=== PATIENT | female | born 1985 | race Two or more races ===

== ENCOUNTER 2022-06-14 12:34 | Inpatient (IN) | payer MEDICAID, OTHER ==
[~2022-06-14] VITALS: Ht 172.7 cm; Wt 91.9 kg
[2022-06-14] MEDS ORDERED: MORPHINE SULFATE 4 MG/ML SYR/VIAL IV ONE (16:00)
[2022-06-14] MEDS ORDERED: SODIUM CHLORIDE 0.9% 500 ML IVB ONE ×2 (16:00)
[2022-06-14] MEDS ORDERED: SODIUM CHLORIDE 0.9% 1,000 ML IV ONE ×2 (16:00)
[2022-06-14] MEDS ORDERED: METOCLOPRAMIDE HCL 5MG/ml INJ 2ml VIAL IV ONE (16:00)
[2022-06-14 16:22] LABS: Basophils # (auto) 0.1 10 ^3/uL (0-0.2); Basophils % (auto) 0.4 % (0.0-2.0); Eosinophils # (auto) 0 10 ^3/uL (0-0.8); Monocytes # (auto) 0.3 10 ^3/uL (0-1.3)
[2022-06-14 16:24] LABS: Hematocrit 44.7 % (36.0-46.0); Hemoglobin 14.1 g/dL (12.2-16.2); Lymphocytes % (auto) 5.3 % (10.0-50.0); Mean Corpuscular Hemoglobin 25.2 pg (28.0-32.0); Mean Corpuscular Hgb Conc. 31.5 g/dL (32.0-36.0); Monocytes % (auto) 1.5 % (0.0-12.0); Neutrophils # (auto) 17.8 10 ^3/uL (1.6-8.6); Neutrophils % (auto) 92.8 % (37.0-80.0); Red Blood Cells 5.59 10^6/uL (4.0-5.20); Red Cell Distribution Width 14.9 % (11.8-14.3); White Blood Cell 19.2 10^3/uL (4.4-10.8)
[2022-06-14 16:33] LABS: Albumin 3.9 g/dL (3.4-5.0); BUN/Creatinine Ratio 10.8; Calcium 8.4 mg/dL (8.5-10.1); Magnesium 1.9 mg/dL (1.6-2.6); Potassium 3.8 mmol/L (3.5-5.1)
[2022-06-14 16:36] LABS: Bilirubin, Total 0.3 mg/dL (0.2-1.0); Total Protein 8.1 g/dL (6.4-8.2)
[2022-06-14] MEDS ORDERED: IOHEXOL 300 MG/ML 100ML BOTTLE IJ ONE (16:58)
[2022-06-14 18:28] LABS: Urine Bacteria NONE SEEN /hpf (None Seen); Urine Blood Negative /uL (Negative); Urine Mucus FEW (None Seen); Urine Specific Gravity 1.024 (1.001-1.035); Urine WBC 5 /hpf (0 - 5)
[2022-06-14] MEDS ORDERED: MORPHINE SULFATE INJ 2 MG/ml SYRG IV ONE (18:45)
[2022-06-14] MEDS ORDERED: cefTRIAXone 1GM/50ML D5W 50 ML IV ONE (18:45)
[2022-06-14] MEDS ORDERED: ONDANSETRON HCL 4 MG/2 ML VIAL IM ONE (18:45)
[2022-06-14] MEDS ORDERED: ONDANSETRON HCL 4 MG/2 ML VIAL IV ONE (19:15)
[2022-06-14 19:42] LABS: INR 0.99 (0.9-1.15)
[2022-06-14] MEDS ORDERED: DEXTROSE (50%) 50ML SYRG IV PRN (22:45)
[2022-06-14] MEDS ORDERED: NITROGLYCERIN 0.4 MG SL TAB SL PRN (22:45)
[2022-06-14] MEDS ORDERED: HYDROcodone-ACET 5/325MG TAB PO PRN (22:45)
[2022-06-14] MEDS ORDERED: SODIUM CHLORIDE 0.9% 1,000 ML IV SCH (22:45)
[2022-06-14] MEDS ORDERED: MORPHINE SULFATE INJ 2 MG/ml SYRG IV PRN (22:45)
[2022-06-14] MEDS: ONDANSETRON HCL 4 MG/2 ML VIAL IV PRN (23:20)
[2022-06-15] MEDS: ONDANSETRON HCL 4 MG/2 ML VIAL IV PRN ×4 (04:55→21:43)
[2022-06-15 05:00] VITALS: BP 126/85
[2022-06-15] MEDS: metroNIDAZOLE 500MG/100ML 100 ML IV SCH ×2 (06:09→19:22)
[2022-06-15] MEDS: InsuLIN REG 1unit/0.01ml Soln (100units/ml) SC SCH ×4 (06:12→21:44)
[2022-06-15] MEDS: ACCU-CHEK COMFORT CURVE STRIP VI SCH ×4 (06:12→21:44)
[2022-06-15 07:08] LABS: Basophils # (auto) 0 10 ^3/uL (0-0.2); Basophils % (auto) 0.2 % (0.0-2.0); Eosinophils # (auto) 0 10 ^3/uL (0-0.8); Hematocrit 37.7 % (36.0-46.0); Hemoglobin 12.5 g/dL (12.2-16.2); Lymphocytes # (auto) 1.9 10 ^3/uL (0.4-5.4); Lymphocytes % (auto) 14.1 % (10.0-50.0); Mean Corpuscular Hemoglobin 26.1 pg (28.0-32.0); Mean Corpuscular Hgb Conc. 33.3 g/dL (32.0-36.0); Mean Corpuscular Volume 78.6 fL (80.0-100.0); Monocytes # (auto) 0.7 10 ^3/uL (0-1.3); Monocytes % (auto) 4.9 % (0.0-12.0); Neutrophils # (auto) 10.9 10 ^3/uL (1.6-8.6); Neutrophils % (auto) 80.8 % (37.0-80.0); Red Blood Cells 4.79 10^6/uL (4.0-5.20); Red Cell Distribution Width 14.6 % (11.8-14.3); White Blood Cell 13.5 10^3/uL (4.4-10.8)
[2022-06-15 07:27] LABS: Albumin 3.3 g/dL (3.4-5.0); Calcium 7.9 mg/dL (8.5-10.1)
[2022-06-15 07:31] LABS: BUN/Creatinine Ratio 11.9; Bilirubin, Total 0.6 mg/dL (0.2-1.0)
[2022-06-15 07:40] LABS: Potassium 2.9 mmol/L (3.5-5.1)
[2022-06-15 08:00] VITALS: BP 141/95
[2022-06-15] MEDS: FAMOTIDINE (10MG/ML) 2ML VL IV SCH ×2 (08:44→21:43)
[2022-06-15] MEDS: POTASSIUM CHL 20MEQ/100ML 100 ML IV SCH ×3 (08:44→16:08)
[2022-06-15] MEDS: MORPHINE SULFATE INJ 2 MG/ml SYRG IV PRN ×3 (08:50→23:16)
[2022-06-15 09:00] VITALS: BP 141/95
[2022-06-15] MEDS ORDERED: ENOXAPARIN SOD 40 MG/0.4 ML SYRINGE SC SCH (10:00)
[2022-06-15] MEDS ORDERED: GASTROGRAFIN 120 ML SOL ONE (12:15)
[2022-06-15 13:00] VITALS: BP_SYST 120; BP_SYST 147; BP_DIAS 49; BP_DIAS 94
[2022-06-15 17:00] VITALS: BP 129/84
[2022-06-15] MEDS ORDERED: POTASSIUM CHLORIDE 60 MEQ, LIDOCAINE 1% (LOCAL ANESTH.) 6 ML in SODIUM CHL 0.9% 500 ML IV ONE (18:45)
[2022-06-15] MEDS ORDERED: D5W/SOD CHL 0.45%/KCL 40MEQ 1,000 ML IV SCH (18:45)
[2022-06-15] MEDS ORDERED: cefTRIAXone 1GM/50ML D5W 50 ML IV SCH ×2 (19:00→21:00)
[2022-06-15 22:00] VITALS: BP 152/99
[2022-06-15 22:20] LABS: Magnesium 2.2 mg/dL (1.6-2.6); Potassium 3.8 mmol/L (3.5-5.1)
[2022-06-16] MEDS: metroNIDAZOLE 500MG/100ML 100 ML IV SCH ×3 (03:38→21:44)
[2022-06-16] MEDS: ONDANSETRON HCL 4 MG/2 ML VIAL IV PRN (04:37)
[2022-06-16 05:00] VITALS: BP 148/99
[2022-06-16 06:02] LABS: Calcium 8.2 mg/dL (8.5-10.1); Magnesium 2.3 mg/dL (1.6-2.6); Potassium 3.3 mmol/L (3.5-5.1)
[2022-06-16] MEDS: InsuLIN REG 1unit/0.01ml Soln (100units/ml) SC SCH ×4 (06:04→21:51)
[2022-06-16] MEDS: ACCU-CHEK COMFORT CURVE STRIP VI SCH ×4 (06:04→21:51)
[2022-06-16] MEDS: MORPHINE SULFATE INJ 2 MG/ml SYRG IV PRN (08:21)
[2022-06-16 09:00] VITALS: BP 143/95
[2022-06-16] MEDS: FAMOTIDINE (10MG/ML) 2ML VL IV SCH (10:10)
[2022-06-16] MEDS ORDERED: POTASSIUM CHLORIDE 40 MEQ, LIDOCAINE 1% (LOCAL ANESTH.) 4 ML in SODIUM CHL 0.9% 250 ML IV STA (10:54)
[2022-06-16 13:00] VITALS: BP 146/94
[2022-06-16] MEDS ORDERED: ceFAZolin 1GM/50ML 100 ML IV ONE (13:58)
[2022-06-16] MEDS ORDERED: HYDROmorphone HCL 2 MG/ML VL/or syr ONE (14:11)
[2022-06-16] MEDS ORDERED: ROCURONIUM 10MG/ML 10ML VIAL IV ONE (14:11)
[2022-06-16] MEDS ORDERED: fentaNYL CITRATE 100 MCG/2 ML VL ONE (14:11)
[2022-06-16] MEDS ORDERED: PROPOFOL 10 MG/ML 20 ML IV ONE (14:12)
[2022-06-16] MEDS ORDERED: MIDAZOLAM HCL 2MG/2ML 2ml VIAL (1mg/ml) ONE (14:12)
[2022-06-16] MEDS ORDERED: GLYCOPYRROLATE 0.2 MG/ML 1ML VIAL ONE (14:12)
[2022-06-16] MEDS ORDERED: ONDANSETRON HCL 4 MG/2 ML VIAL ONE (14:12)
[2022-06-16] MEDS ORDERED: DexAMETHasone SOD PHOS 10MG/1ML VIAL INJ ONE (14:12)
[2022-06-16] MEDS ORDERED: FAMOTIDINE (10MG/ML) 2ML VL IV ONE (15:07)
[2022-06-16] MEDS ORDERED: ONDANSETRON HCL 4 MG/2 ML VIAL IV PRN (15:45)
[2022-06-16] MEDS ORDERED: ACCU-CHEK COMFORT CURVE STRIP VI ONE (15:45)
[2022-06-16] MEDS ORDERED: HYDROmorphone HCL 2 MG/ML VL/or syr IV PRN (15:45)
[2022-06-16] MEDS ORDERED: SUGAMMADEX 200mg/2ml Vial (100MG/ML) IV ONE (15:47)
[2022-06-16] MEDS ORDERED: MEPERIDINE HCL (50 MG/ML) 1 ML VIAL ONE (16:03)
[2022-06-16] MEDS ORDERED: LACTATED RINGER'S 1,000 ML IV ONE (16:15)
[2022-06-16] MEDS: D5W/SOD CHL 0.45%/KCL 20MEQ 1,000 ML IV SCH (16:15)
[2022-06-16] MEDS ORDERED: ALBUTEROL SULF 2.5 MG/0.5ML(0.5%) NEB SOLN NEB ONE (16:30)
[2022-06-16] MEDS ORDERED: metroNIDAZOLE 500MG/100ML 100 ML IV SCH (20:00)
[2022-06-16 22:00] VITALS: BP 131/93
[2022-06-16] MEDS: HYDROmorphone HCL 2 MG/ML VL/or syr IV PRN (22:02)
[2022-06-16] MEDS ORDERED: cefTRIAXone 1GM/50ML D5W 50 ML IV ONE (23:00)
[2022-06-16] MEDS ORDERED: cefTRIAXone 1GM/50ML D5W 50 ML IV SCH (23:00)
[2022-06-17] MEDS: D5W/SOD CHL 0.45%/KCL 20MEQ 1,000 ML IV SCH ×3 (00:43→18:38)
[2022-06-17] MEDS: HYDROmorphone HCL 2 MG/ML VL/or syr IV PRN ×4 (01:25→23:10)
[2022-06-17 05:00] VITALS: BP 139/90
[2022-06-17 05:17] LABS: Eosinophils # (auto) 0 10 ^3/uL (0-0.8); Eosinophils % (auto) 0.1 % (0.0-7.0); Nucleated Red Blood Cells % 0.1 %; Red Blood Cells 4.72 10^6/uL (4.0-5.20); Red Cell Distribution Width 14.7 % (11.8-14.3); White Blood Cell 14.3 10^3/uL (4.4-10.8)
[2022-06-17 05:19] LABS: Basophils # (auto) 0 10 ^3/uL (0-0.2); Basophils % (auto) 0.3 % (0.0-2.0); Hemoglobin 12.2 g/dL (12.2-16.2); Lymphocytes # (auto) 3.1 10 ^3/uL (0.4-5.4); Lymphocytes % (auto) 21.5 % (10.0-50.0); Mean Corpuscular Hemoglobin 25.8 pg (28.0-32.0); Mean Corpuscular Hgb Conc. 32.9 g/dL (32.0-36.0); Mean Corpuscular Volume 78.4 fL (80.0-100.0); Monocytes # (auto) 0.7 10 ^3/uL (0-1.3); Monocytes % (auto) 4.9 % (0.0-12.0); Neutrophils # (auto) 10.5 10 ^3/uL (1.6-8.6); Neutrophils % (auto) 73.2 % (37.0-80.0)
[2022-06-17 05:32] LABS: BUN/Creatinine Ratio 15.2; Calcium 7.5 mg/dL (8.5-10.1); Potassium 3.4 mmol/L (3.5-5.1)
[2022-06-17] MEDS: metroNIDAZOLE 500MG/100ML 100 ML IV SCH ×3 (05:36→22:03)
[2022-06-17] MEDS: ACCU-CHEK COMFORT CURVE STRIP VI SCH ×2 (06:08→12:53)
[2022-06-17] MEDS: InsuLIN REG 1unit/0.01ml Soln (100units/ml) SC SCH ×2 (06:09→11:30)
[2022-06-17 09:00] VITALS: BP 134/86
[2022-06-17] MEDS: PANTOPRAZOLE 40 MG/10 ML VIAL INJ IV SCH (11:34)
[2022-06-17] MEDS: ONDANSETRON HCL 4 MG/2 ML VIAL IV PRN (11:34)
[2022-06-17 13:00] VITALS: BP_SYST 120; BP_SYST 126; BP_DIAS 59; BP_DIAS 86
[2022-06-17 16:45] VITALS: BP 138/88
[2022-06-17] MEDS: cefTRIAXone 1GM/50ML D5W 50 ML IV SCH (20:52)
[2022-06-17 22:00] VITALS: BP 138/88
[2022-06-18] MEDS: D5W/SOD CHL 0.45%/KCL 20MEQ 1,000 ML IV SCH ×3 (03:21→15:22)
[2022-06-18 04:58] VITALS: BP 130/88
[2022-06-18] MEDS: metroNIDAZOLE 500MG/100ML 100 ML IV SCH ×3 (06:07→22:26)
[2022-06-18] MEDS: ONDANSETRON HCL 4 MG/2 ML VIAL IV PRN ×2 (06:17→15:22)
[2022-06-18] MEDS: HYDROmorphone HCL 2 MG/ML VL/or syr IV PRN ×2 (06:18→15:25)
[2022-06-18 09:17] VITALS: BP 130/83
[2022-06-18] MEDS: PANTOPRAZOLE 40 MG/10 ML VIAL INJ IV SCH (09:46)
[2022-06-18] MEDS: METOCLOPRAMIDE HCL 5MG/ml INJ 2ml VIAL IV SCH ×3 (10:22→17:48)
[2022-06-18 13:00] VITALS: BP 144/93
[2022-06-18 17:00] VITALS: BP 127/80
[2022-06-18] MEDS: TEMAZEPAM 15 MG CAP PO PRN (21:17)
[2022-06-18 22:00] VITALS: BP 134/90
[2022-06-18] MEDS: cefTRIAXone 1GM/50ML D5W 50 ML IV SCH (22:26)
[2022-06-19] MEDS: ONDANSETRON HCL 4 MG/2 ML VIAL IV PRN ×4 (00:43→16:44)
[2022-06-19] MEDS: D5W/SOD CHL 0.45%/KCL 20MEQ 1,000 ML IV SCH (02:35)
[2022-06-19] MEDS: METOCLOPRAMIDE HCL 5MG/ml INJ 2ml VIAL IV SCH ×4 (04:08→18:12)
[2022-06-19 05:00] VITALS: BP 125/89
[2022-06-19] MEDS: HYDROmorphone HCL 2 MG/ML VL/or syr IV PRN ×2 (05:31→18:44)
[2022-06-19] MEDS: metroNIDAZOLE 500MG/100ML 100 ML IV SCH ×3 (07:28→22:11)
[2022-06-19 08:50] VITALS: BP 127/92
[2022-06-19] MEDS: PANTOPRAZOLE 40 MG/10 ML VIAL INJ IV SCH (09:37)
[2022-06-19 12:50] VITALS: BP 140/97
[2022-06-19 16:45] VITALS: BP 125/85
[2022-06-19] MEDS: cefTRIAXone 1GM/50ML D5W 50 ML IV SCH (20:45)
[2022-06-19 22:00] VITALS: BP 133/88
[2022-06-19] MEDS: TEMAZEPAM 15 MG CAP PO PRN (22:11)
[2022-06-20] MEDS: ONDANSETRON HCL 4 MG/2 ML VIAL IV PRN ×2 (03:38→10:38)
[2022-06-20] MEDS: HYDROmorphone HCL 2 MG/ML VL/or syr IV PRN (03:40)
[2022-06-20 05:00] VITALS: BP 125/82
[2022-06-20] MEDS: metroNIDAZOLE 500MG/100ML 100 ML IV SCH (05:50)
[2022-06-20] MEDS: METOCLOPRAMIDE HCL 5MG/ml INJ 2ml VIAL IV SCH ×5 (05:50→18:25)
[2022-06-20 09:00] VITALS: BP 131/86
[2022-06-20] MEDS: PANTOPRAZOLE 40 MG/10 ML VIAL INJ IV SCH (09:42)
[2022-06-20] MEDS: ACETAMINOPHEN 325 MG TAB PO PRN ×2 (10:43→18:26)
[2022-06-20 13:00] VITALS: BP 132/84
[2022-06-20 13:52] LABS: Basophils # (auto) 0 10 ^3/uL (0-0.2); Basophils % (auto) 0.2 % (0.0-2.0); Eosinophils # (auto) 0.1 10 ^3/uL (0-0.8); Hematocrit 41.5 % (36.0-46.0); Hemoglobin 13.7 g/dL (12.2-16.2); Lymphocytes # (auto) 2.4 10 ^3/uL (0.4-5.4); Lymphocytes % (auto) 21.2 % (10.0-50.0); Mean Corpuscular Hemoglobin 25.7 pg (28.0-32.0); Monocytes # (auto) 0.5 10 ^3/uL (0-1.3); Monocytes % (auto) 4.3 % (0.0-12.0); Neutrophils # (auto) 8.1 10 ^3/uL (1.6-8.6); Neutrophils % (auto) 73.3 % (37.0-80.0); Red Blood Cells 5.32 10^6/uL (4.0-5.20); Red Cell Distribution Width 14.5 % (11.8-14.3); White Blood Cell 11.1 10^3/uL (4.4-10.8)
[2022-06-20 14:12] LABS: Calcium 8.9 mg/dL (8.5-10.1); Magnesium 2.3 mg/dL (1.6-2.6)
[2022-06-20 14:15] LABS: BUN/Creatinine Ratio 10.3
[2022-06-20 17:00] VITALS: BP 128/88
[2022-06-20 17:18] VITALS: BP 128/88
[2022-06-20 22:00] VITALS: BP 123/88
[2022-06-20] MEDS: KETOROLAC TROMETH 30 MG/ML 1ML VIAL IV PRN (22:57)
[2022-06-21] MEDS: METOCLOPRAMIDE HCL 5MG/ml INJ 2ml VIAL IV SCH ×4 (00:11→17:40)
[2022-06-21 05:00] VITALS: BP 117/72
[2022-06-21] MEDS ORDERED: POTASSIUM EFFERVESENT TAB 25 MEQ PO ONE (08:30)
[2022-06-21] MEDS: POTASSIUM CHLORIDE 20 MEQ, LIDOCAINE 1% (LOCAL ANESTH.) 2 ML in SODIUM CHL 0.9% 100 ML IV ONE ×2 (08:40→08:56)
[2022-06-21 09:00] VITALS: BP 118/75
[2022-06-21] MEDS: PANTOPRAZOLE 40 MG/10 ML VIAL INJ IV SCH (10:20)
[2022-06-21 12:41] VITALS: BP 119/76
[2022-06-21 17:00] VITALS: BP 120/84
[2022-06-21] MEDS: TEMAZEPAM 15 MG CAP PO PRN (21:09)
[2022-06-21 22:00] VITALS: BP 116/72
[2022-06-22] MEDS: METOCLOPRAMIDE HCL 5MG/ml INJ 2ml VIAL IV SCH ×2 (00:11→06:04)
[2022-06-22] MEDS: KETOROLAC TROMETH 30 MG/ML 1ML VIAL IV PRN ×2 (00:11→06:05)
[2022-06-22 05:00] VITALS: BP 118/77
[2022-06-22 09:00] VITALS: BP 117/76
[2022-06-22] MEDS: PANTOPRAZOLE 40 MG/10 ML VIAL INJ IV SCH (10:20)
[2022-06-22] MEDS ORDERED: ACET-1304 PO (10:29)
[2022-06-22 10:39] VITALS: BP 118/77
== END 2022-06-22 11:00 | disposition home or self-care (01) | DRG 224 ==
LOC: ER 12:34 → OVERFLOW 22:43 → WEST WING 23:53
PROVIDERS: ADMIT Nurse Practitioner Family; ATTEND Hospitalist
PROC: 0D9670Z Drainage of Stomach with Drainage Device, Via Natural or Artificial Opening (ICD-10-PCS; principal; 2022-06-14)
PROC: 0DN80ZZ Release Small Intestine, Open Approach (ICD-10-PCS; 2022-06-16)
DX: K56.50 Intestinal adhesions [bands], unspecified as to partial versus complete obstruction (principal); R18.8 Other ascites; K76.0 Fatty (change of) liver, not elsewhere classified; D72.828 Other elevated white blood cell count; I10 Essential (primary) hypertension; R73.9 Hyperglycemia, unspecified; Z20.822 Contact with and (suspected) exposure to COVID-19
CPT/HCPCS: 36415; 71045; 74018; 74177; 74250; 80048; 80053; 81001; 82962; 83036; 83690; 83735; 84132; 84484; 84702; 85025; 85610; 85730; 86850; 86900; 86901; 94640; 96361; 96365; C9113; G0378; J0690; J0696; J1100; J1885; J2001; J2250; J2405; J2704; J3480; J3490